=== PATIENT | female | born 1985 | race Two or more races ===

== ENCOUNTER → 2017-10-13 | Outpatient (CLI) | payer OTHER ==
--- NOTE | 2017-10-16 01:16 | ECWPNPC ---
PATIENT NAME: PREM LEDEZMA : 1985 GENDER: FEMALE VISIT DATE: 10/13/2017 DISCHARGE DATE: 10/13/17 1200 VISIT LOCKED DATE TIME: PHYSICIAN: ACOSTA DE LA GARZA RESOURCE: ACOSTA DE LA GARZA REASON FOR APPOINTMENT 1. LOW BACK PAIN HISTORY OF PRESENT ILLNESS NEW PATIENT CONSULT: WHEN DID YOUR PAIN FIRST START? . BRIEFLY DESCRIBE HOW YOUR PAIN STARTED? . HOW DOES YOUR PAIN CHANGE WITH TIME? . DOES YOUR PAIN AWAKEN YOU FROM SLEEP? . HOW MANY HOURS OF SLEEP DO YOU NORMALLY GET? . ANY DIAGNOSTIC TESTING? . FACILITY WHERE TESTS WERE DONE? ____. PAIN TREATMENT TREATMENT YES CANCER HAVE YOU EVER HAD ANY TYPE OF CANCER?NO NO. PAIN SCREENING: PATIENT HAS A COMPLAINT OF ACUTE OR CHRONIC PAIN :YES FALL RISK SCREENING: SCREENING :NO FALLS IN THE PAST YEAR MARIANO INVENTORY: QUESTIONNAIRE ASSESSEDYES SCORE VALUE CALCULATED YES SCORE: TODAY'S VISIT: NOTES: REFERRED BY BY FIDEL ROWE FROM [facility] FOR LOW BACK PAIN. HAS PREVIOUSLY BEEN SEEN BY CASANDRA DURAN DO FOR BACK PAIN AND DID HAVE INJECTION THERAPY. WAS RECENTLY REFERRED TO DR TONIA MALHOTRA PAIN MANAGEMENT BUT HE FELT HE HAD NOTHING NEW TO OFFER. SHE MAY CURRENTLY BE .STATES PAIN HAS BEEN PRESENT SINCE 2005 AFTER LIFTING A TV. DAY AFTER. HAD MRI DONE AT [facility] - AND CP DR JONES - - NO RETURN, WAS STARTED ON ENOCH THEN STOPPED. TOPAMAX - CAUSED NIGHTMARES. THEN SAW DR NAVA STARTED ON TRAM BUT CAN'T TAKE PER PSYCH DUE TO CYMBALTA. HAD INJ OF TORADOL IN OFFICE, AND TPI WHICH SHE FELT DISCOMFORT. HURTS TO SIT, LIFT, WALK, BEND. HAS MADE NUMEROUS TRIPS OVER TIME FOR BACK THE AQUA THERAPY WAS HELPFUL. PAIN FEELS LIKE A FIST IN BACK CAUSING PRESSURE. PAIN RADIATES DOWN THE LEGSDEPENDING ON WHICH SIDE IS THE WORST. CAN SLEEP AT TIMES. LEGS WEAK WHEN PAIN AT ITS WORST. HAD FALL IN SHOWER WITH FRACTURE OF RIGHLEG WITH DISLOCATION OF HIP.2011. ALSO FELL DOWN STAIRS AND FX RT TOES. DID HAVE RECENT FUNCTIONAL CAPACITY STUDY.. CURRENT MEDICATIONS TAKING CYMBALTA 60 MG CAPSULE DELAYED RELEASE PARTICLES 1 CAPSULE ORALLY ONCE A DAY, NOTES: 10-12-17 TAKING OXYCODONE-ACETAMINOPHEN 5-325 MG TABLET 1 TABLET NEEDED ORALLY EVERY 6 HRS TAKING IMODIUM ADVANCED TAKING REMERON 15 MG TABLET 1 TABLET AT BEDTIME ORALLY ONCE A DAY MEDICATION LIST REVIEWED AND RECONCILED WITH THE PATIENT PAST MEDICAL HISTORY DEPRESSION IBS INSOMNIA ASTHMA FX RIGHT FIBULA ANXIETY/ DEPRESSIN CHRONIC CELLULITIS TO LEFT EAR ALLERGIES CODEINE SULFATE: HIVES: ALLERGY CATS, WEEDS, DUST: SNEEZING SURGICAL HISTORY TONSILECTOMY 2010 C SECTION 2006 HERNIA REPAIR 2012 LIPOMA REMOVED 2014 FAMILY HISTORY FATHER: ALIVE MOTHER: ALIVE SOCIAL HISTORY GENERAL: TOBACCO USE ARE YOU A:CURRENT SMOKER ARE YOU INTERESTED IN QUITTING?NOT READY TO QUIT COUNSELED THE PATIENT ON SMOKING EFFECTS, EDUCATION [id number]/13/2017 HOW MANY CIGARETTES A DAY DO YOU SMOKE?31 OR MORE HOW OFTEN DO YOU SMOKE CIGARETTES?EVERY DAY PATIENT COUNSELED ON THE DANGERS OF TOBACCO USE AND URGED TO QUIT:10/13/2017 ALCOHOL SCREENING POINTS0 INTERPRETATIONNEGATIVE RECREATIONAL DRUG USE DRUG USE?NO CAFFEINE CAFFEINE USE?YES HOW OFTEN AND HOW MUCH? 1-2 CUPS COFFEE PER DAY ANABAPTISM [id number] NONE NO NONDENOMINATIONAL BELIEFS THAT WOULD IMPACT HEALTH CARE. LEARNING BARRIERS / SPECIAL NEEDS BARRIERS TO LEARNING?NO HEARING IMPAIRED?NO VISION IMPAIRED?YES :CORRECTIVE LENSES COGNITIVELY IMPAIRED?NO READINESS TO LEARN?YES LEARNING PREFERENCES?NO PSYCHOLOGICAL HX TREATMENTYES HOW OFTEN AND HOW MUCH? EVERY 2 WEEKS OR SO FOR DEPRESSION PAIN CLINIC PFS, CLERGY, PUBLIC HEALTH REFERRALS PFS REFERRAL NEEDED?NO CLERGY REFERRAL NEEDED?NO PUBLIC HEALTH REFERRAL NEEDED?NO WAS THE PROVIDER NOTIFIED OF ANY PERTINENT INFO?NO HAS THE PATIENT BEEN EDUCATED REGARDING HIS/HER PLAN OF CARE?YES HAS THE PATIENT BEEN EDUCATED REGARDING PAIN, THE RISK FOR PAIN, THE IMPORTANCE OF EFFECTIVE PAIN MANAGEMENT, AND THE PAIN ASSESSMENT PROCESS?YES PATIENT: ____. ADVANCE DIRECTIVES HEALTH CARE PROXY?NO WOULD YOU LIKE MORE INFORMATION?NO LIVING WILL?NO WOULD YOU LIKE MORE INFORMATION?NO HOSPITALIZATION/MAJOR DIAGNOSTIC PROCEDURE SEE ABOVE / HAS HAD SOME MAJOR PROBLEMS WITH RECOVERY FROM ANESTHESIA POST OP REVIEW OF SYSTEMS REVIEWED BY: PROVIDER: ACOSTA CARROLL . CONSTITUTIONAL: ANY CHANGE IN YOUR MEDICAL CONDITION? NO . CHILLS NO . FEVER NO . INFECTION: DO YOU HAVE NEW INFECTIONS? NO . DO YOU HAVE HISTORY OF MRSA? NO . MUSCULOSKELETAL: ANY NEW PATTERNS OF PAIN OR NUMBNESS? NO . SYTEMIC LUPUS NO . GASTROENTEROLOGY: ANY NEW CHANGE IN BOWEL CONTROL? IBS - WITH ALT DIARRHEA AND CONSTIPATION. TO SEE GASTROENTEROLOGY BEFORE. HAS RECTAL BLEED WITH STRAINING . BARRETTS ESOPHAGUS NO . CIRRHOSIS NO . HEPATITIS NO . LIVER FAILURE NO . ACID REFLUX NO . UNEXPLAINED WEIGHT LOSS NO . GENITOURINARY: ANY NEW CHANGE IN BLADDER CONTROL? NO . IS THERE A CHANCE YOU COULD BE ? NO . HEMATOLOGY/LYMPH: DO YOU TAKE ANY BLOOD THINNERS? (FOR EXAMPLE- COUMADIN, PLAVIX, AGGRENOX, PLATEL, PRADAXA, OR XARELTO) NO . WHEN WAS YOUR LAST DOSE? DATE: TIME: . LOW PLATELET COUNT NO . SICKLE CELL DISEASE NO . VON WILLIEBRANDS NO . FACTOR V LEIDEN NO . THALLASEMIA NO . ANEMIA NO . EASY BRUISING NO . NEUROLOGY: HAVE YOU FALLEN IN THE PAST 6 MONTHS? NO . ANY NEW EXTREMITY NUMBNESS OR WEAKNESS? NO . HEAD INJURY NO . DEMENTIA NO . CEREBRAL PALSY NO . MULTIPLE SCLEROSIS NO . DIZZINESS NO . HEADACHE NO . STROKES NO . VERTIGO NO . CARDIOLOGY: DO YOU HAVE A PACEMAKER OR DEFIBRILLATOR? NO . ANGINA NO . HEART ATTACK NO . HEART SURGERY NO . CONGESTIVE HEART FAILURE/FLUID OVERLOAD NO . CHEST PAIN NO . HIGH BLOOD PRESSURE YES, RESCENTLY . IRREGULAR HEART BEAT NO . RESPIRATORY: HAVE YOU BEEN SICK IN THE PAST WEEK? NO . FEVER NO . FLU LIKE SYMPTOMS? NO . CPAP NO . BYPAP NO . ASTHMA YES . EMPHYSEMA NO . CHRONIC LUNG DISEASES NO . SHORTNESS OF BREATH ON EXERTION NO . DO YOU USE ANY TYPE OF TOBACCO (SMOKE, SMOKELESS, CHEW)? YES - NOT CURRRENTLY THINKING ABOUT QUITING . COUGH NO . SNORING NO . INTEGUMENTARY: DO YOU HAVE ANY RASHES OR OPEN SORES? NO . ALLERGIC/IMMUNO: ARE YOU ALLERGIC TO SHELLFISH OR IV DYE? NO . ANY NEW ALLERGIES? NO . PSYCHIATRIC: DO YOU HAVE THOUGHTS OF HURTING YOURSELF OR SOMEONE ELSE? NO . ARE YOU ABUSED, NEGLECTED, OR IN AN UNSAFE ENVIRONMENT? NO . ENDOCRINOLOGY: ARE YOU DIABETIC? NO . THYROID DISORDER NO . OTHER: DO YOU NEED ANY PRESCRIPTIONS? NO . IF YES, PLEASE LIST: ____ . ANY NEW PROBLEMS WITH YOUR MEDICATIONS? NO . WHEN DID YOU LAST EAT? ____ . WHEN DID YOU LAST DRINK? ____ . WHAT DID YOU LAST DRINK? ____ . NAME OF PERSON DRIVING YOU HOME? ____ . DO YOU HAVE ANY OTHER QUESTIONS OR CONCERNS NO . PSYCHOLOGY: BECKS DEPRESSION INVENTORY . DENIES SUICIDAL OR HOMICIDAL IDEATION. CURRENTLY SEES A BEHAVIORAL HEALTH COUNSELOR . VITAL SIGNS WT 433.2 LBS, HT 65 IN, BMI 72.08 INDEX, BP 141/99 MM HG, HR 87 /MIN, RR 18 /MIN, TEMP 97 F, OXYGEN SAT % 95%, NA INITIALS SC 10:05, REVIEWED BY: NL. EXAMINATION GENERAL EXAMINATION: GENERAL APPEARANCE:MORBIDLY OBESE . PSYCHALERT , ORIENTED X 3 , VOICE LOUD . HEENT:THICK NECK. , NORMOCEPHALIC, NO PALPABLE LYMPH NODES. LUNGS:CLEAR TO AUSCULTATION BILATERALLY, DECREASED AIR ENTRY AT BASES, NO WHEEZES, RALES OR RHONCHI. HEART:HEART RATE REGULAR, RAPID, NORMAL S1S2, NO MURMURS, CLICK OR RUBS. MUSCULOSKELETAL:MUSCLE STRENGTH TESTING 5/5 BILATERAL UPPER AND LOWER EXTREMITIES. IS ABLE TO FLEX TO 90 DEGREES, EXTEND TO 10 DEGREES AND NO ISSUES WITH ROTATION. POINT TENDERNESS OVER LUMBOSACRAL AXIS RIGHT > LEFT . EXQUISITE PAIN WITH PATRICKS. TESTING LEFT GREATER THAN RIGHT. PAIN WITH PELVIC COMPRESSION BILATERALLY. REPORTS PAIN AT KNEES WITH SLR. POSTURE UPRIGHT. GAIT WIDEBASED. . NEUROLOGIC EXAM:NO SENSORY DEFIECIT. DTR'S TRACE/ABSENT IN BILATERAL UPPER AND LOWER EXTREMITIES. . DIAGNOSTIC TESTS REVIEWEDMRI OF LUMBAR SPINE/[facility] REVIEWED COMPLTED 11/15/16. DEMONSTRTAES SUBTLE LEFT PARACENTRAL DISC PROTRUSION AT L4-5. MILD INTRAFACET EDEMA NOTED. ASSESSMENTS MYALGIA - M79.1 (PRIMARY) BILATERAL SACROILIITIS - M46.1 LUMBAGO WITH SCIATICA, LEFT SIDE - M54.42 LUMBAGO WITH SCIATICA, RIGHT SIDE - M54.41 OTHER CHRONIC PAIN - G89.29 TREATMENT MYALGIA LAB: HCG, SERUM QUANTITATIVE NOTES: PREG TEST TODAY. OK TO USE FLEXERIL FOR MUSCLE SPASMSCONSIDER EPIDURAL INJECTION FOR PAIN. TALK TO MENTAL HEALTH PROVIDER ABOUT USE OF TRAMADOL. I WOULD BE GLAD TO SPEAK WITH THEM. WE WILL WATCH CLOSELY FOR SEROTONIN SYNDROME,WHAT IS LUMBAR EPIDURAL INJECTION? MATERIAL WAS PRINTED,LUMBAR EPIDURAL INJECTION: YOUR PROCEDURE MATERIAL WAS PRINTED,LUMBAR EPIDURAL INJECTION: YOUR PROCEDURE MATERIAL WAS PRINTED. CLINICAL NOTES: PT REPORTS SHE MAY BE . I DISCUSSED WITH HER THAT OTHER THAN FLEXERIL WOULD NOT BEABLE T PRESCRIBE OR RECMMEND ANY MEDICATIONS UNTIL THIS IS CONFIRMED. I DID REVIEW THAT WE WOULD NOT BE USING OPIATES BUT COULD TRY INJECTION THERAPY AND OTHER MEDS. RISKS AND CONCERNS REGARDING OPIATES WERE DISCUSSED WITH PT AND HER SO SKY. BILATERAL SACROILIITIS LAB: HCG, SERUM QUANTITATIVE PREVENTIVE MEDICINE DISCUSSED LUMBAR EPIDURAL PROCEDURE AND GAVE SOME WRITTEN INFO/ PT WILL BE SEEN BACK BEFORE THIS IS ORDERED AND WILL GET PREPROCEDURE TEACHING AT THAT TIME. PROCEDURE CODES FA211 ESTABILISHED PATIENT [facility] CHARGE DISPOSITION & COMMUNICATION FOLLOW UP 2 WEEKS (REASON: BACK PAIN) ELECTRONICALLY SIGNED BY FROY PHILLIP ON 10/15/2017 AT 01:24 PM EST DISCLAIMER : THIS IS A VISIT SUMMARY EXTRACTED FROM THE [employer] CHART. IT IS NOT A COPY OF THE [employer] PROGRESS NOTE. WILLIS
== END ==
LOC: M PAIN 09:45
PROVIDERS: ATTEND Nurse Practitioner Family
DX: M79.1 Myalgia (principal); M46.1 Sacroiliitis, not elsewhere classified; M54.42 Lumbago with sciatica, left side; M54.41 Lumbago with sciatica, right side; F32.9 Major depressive disorder, single episode, unspecified; G89.29 Other chronic pain; I10 Essential (primary) hypertension; K58.2 Mixed irritable bowel syndrome; F17.210 Nicotine dependence, cigarettes, uncomplicated; Z79.891 Long term (current) use of opiate analgesic; Z79.899 Other long term (current) drug therapy; Z88.5 Allergy status to narcotic agent; J30.81 Allergic rhinitis due to animal (cat) (dog) hair and dander

== ENCOUNTER → 2017-10-29 | Outpatient (CLI) | payer OTHER ==
--- NOTE | 2017-11-20 01:00 | ECWPNPC ---
PATIENT NAME: PREM LEDEZMA : 1985 GENDER: FEMALE VISIT DATE: 10/29/2017 DISCHARGE DATE: 10/29/17 1237 VISIT LOCKED DATE TIME: PHYSICIAN: ACOSTA DE LA GARZA RESOURCE: ACOSTA DE LA GARZA REASON FOR APPOINTMENT 1. BACK PAIN- PATIENT STATES SHE HAS A 1 PM APPT. ELSEWHERE HISTORY OF PRESENT ILLNESS HISTORY OF PRESENT ILLNESS: PAIN THE PATIENT DESCRIBES THE PAIN... FALL RISK SCREENING: SCREENING :NO FALLS IN THE PAST YEAR TODAY'S VISIT: NOTES: RATES PAIN LEVEL TODAY 10. PAIN IS MAILY LEFT SIDE LOW BACK. HAD A FALL IN THE BATH TUB A FEW DAYS AGO. STATES HAD A BRUISE IN THIS AREA. . CURRENT MEDICATIONS TAKING CYCLOBENZAPRINE HCL 10 MG TABLET 1 CAP ORALLY THREE TIMES A DAY TAKING CLONIDINE HCL 0.3 MG TABLET 1 TABLET ORALLY BEFORE BEDTIME TAKING CYMBALTA 60 MG CAPSULE DELAYED RELEASE PARTICLES 1 CAPSULE ORALLY ONCE A DAY TAKING OXYCODONE-ACETAMINOPHEN 5-325 MG TABLET 1 TABLET NEEDED ORALLY EVERY 6 HRS TAKING IMODIUM ADVANCED NOT-TAKING REMERON 15 MG TABLET 1 TABLET AT BEDTIME ORALLY ONCE A DAY MEDICATION LIST REVIEWED AND RECONCILED WITH THE PATIENT PAST MEDICAL HISTORY DEPRESSION IBS INSOMNIA ASTHMA FX RIGHT FIBULA ANXIETY/ DEPRESSIN CHRONIC CELLULITIS TO LEFT EAR ALLERGIES CODEINE SULFATE: HIVES: ALLERGY CATS, WEEDS, DUST: SNEEZING SURGICAL HISTORY TONSILECTOMY 2010 C SECTION 2007 HERNIA REPAIR 2012 LIPOMA REMOVED 2013 SOCIAL HISTORY GENERAL: TOBACCO USE ARE YOU A:CURRENT SMOKER ARE YOU INTERESTED IN QUITTING?NOT READY TO QUIT COUNSELED THE PATIENT ON SMOKING EFFECTS, EDUCATION [id number]/13/2017 HOW MANY CIGARETTES A DAY DO YOU SMOKE?31 OR MORE HOW OFTEN DO YOU SMOKE CIGARETTES?EVERY DAY PATIENT COUNSELED ON THE DANGERS OF TOBACCO USE AND URGED TO QUIT:10/13/2017 ALCOHOL SCREENING DID YOU HAVE A DRINK CONTAINING ALCOHOL IN THE PAST YEAR?NO POINTS0 INTERPRETATIONNEGATIVE RECREATIONAL DRUG USE DRUG USE?NO CAFFEINE CAFFEINE USE?YES HOW OFTEN AND HOW MUCH? 1-2 CUPS COFFEE PER DAY WORSHIP [id number] NONE NO LATTER DAY BELIEFS THAT WOULD IMPACT HEALTH CARE. LEARNING BARRIERS / SPECIAL NEEDS BARRIERS TO LEARNING?NO HEARING IMPAIRED?NO VISION IMPAIRED?YES :CORRECTIVE LENSES COGNITIVELY IMPAIRED?NO READINESS TO LEARN?YES LEARNING PREFERENCES?NO PSYCHOLOGICAL HX TREATMENTYES HOW OFTEN AND HOW MUCH? EVERY 2 WEEKS OR SO FOR DEPRESSION PAIN CLINIC PFS, CLERGY, PUBLIC HEALTH REFERRALS PFS REFERRAL NEEDED?NO CLERGY REFERRAL NEEDED?NO PUBLIC HEALTH REFERRAL NEEDED?NO WAS THE PROVIDER NOTIFIED OF ANY PERTINENT INFO?NO HAS THE PATIENT BEEN EDUCATED REGARDING HIS/HER PLAN OF CARE?YES HAS THE PATIENT BEEN EDUCATED REGARDING PAIN, THE RISK FOR PAIN, THE IMPORTANCE OF EFFECTIVE PAIN MANAGEMENT, AND THE PAIN ASSESSMENT PROCESS?YES PATIENT: ____. ADVANCE DIRECTIVES HEALTH CARE PROXY?NO WOULD YOU LIKE MORE INFORMATION?NO LIVING WILL?NO WOULD YOU LIKE MORE INFORMATION?NO HOSPITALIZATION/MAJOR DIAGNOSTIC PROCEDURE SEE ABOVE / HAS HAD SOME MAJOR PROBLEMS WITH RECOVERY FROM ANESTHESIA POST OP REVIEW OF SYSTEMS REVIEWED BY: PROVIDER: . CONSTITUTIONAL: ANY CHANGE IN YOUR MEDICAL CONDITION? NO . CHILLS NO . FEVER NO . INFECTION: DO YOU HAVE NEW INFECTIONS? NO . DO YOU HAVE HISTORY OF MRSA? NO . MUSCULOSKELETAL: ANY NEW PATTERNS OF PAIN OR NUMBNESS? YES, BACK PAIN FROM INJURY IN BATHTUB . GASTROENTEROLOGY: ANY NEW CHANGE IN BOWEL CONTROL? NO . GENITOURINARY: ANY NEW CHANGE IN BLADDER CONTROL? NO . IS THERE A CHANCE YOU COULD BE ? NO . HEMATOLOGY/LYMPH: DO YOU TAKE ANY BLOOD THINNERS? (FOR EXAMPLE- COUMADIN, PLAVIX, AGGRENOX, PLATEL, PRADAXA, OR XARELTO) NO . WHEN WAS YOUR LAST DOSE? DATE: TIME: . NEUROLOGY: HAVE YOU FALLEN IN THE PAST 6 MONTHS? NO . ANY NEW EXTREMITY NUMBNESS OR WEAKNESS? NO . CARDIOLOGY: DO YOU HAVE A PACEMAKER OR DEFIBRILLATOR? NO . RESPIRATORY: HAVE YOU BEEN SICK IN THE PAST WEEK? NO . FEVER NO . FLU LIKE SYMPTOMS? NO . COUGH NO . INTEGUMENTARY: DO YOU HAVE ANY RASHES OR OPEN SORES? NO . ALLERGIC/IMMUNO: ARE YOU ALLERGIC TO SHELLFISH OR IV DYE? NO . ANY NEW ALLERGIES? NO . PSYCHIATRIC: DO YOU HAVE THOUGHTS OF HURTING YOURSELF OR SOMEONE ELSE? NO . ARE YOU ABUSED, NEGLECTED, OR IN AN UNSAFE ENVIRONMENT? NO . ENDOCRINOLOGY: ARE YOU DIABETIC? NO . OTHER: DO YOU NEED ANY PRESCRIPTIONS? NO . IF YES, PLEASE LIST: ____ . ANY NEW PROBLEMS WITH YOUR MEDICATIONS? NO . WHEN DID YOU LAST EAT? ____ . WHEN DID YOU LAST DRINK? ____ . WHAT DID YOU LAST DRINK? ____ . NAME OF PERSON DRIVING YOU HOME? ____ . DO YOU HAVE ANY OTHER QUESTIONS OR CONCERNS NO . VITAL SIGNS WT 431 LBS, HT 65 IN, BMI 71.71 INDEX, BP 128/82 MM HG, HR 89 /MIN, RR 18 /MIN, TEMP 97.8 F, OXYGEN SAT % 95%, NA INITIALS SC 11:53, REVIEWED BY: RAMESH. EXAMINATION GENERAL EXAMINATION: PSYCHALERT , ORIENTED X 3 , ANXIOUS. LUNGS:CLEAR TO AUSCULTATION BILATERALLY. HEART:HEART RATE REGULAR. MUSCULOSKELETAL: , PALPATION: POSITIVE FOR PAIN OVER L/S SPINE AND BILATERALLY OVER THE SACRAL ILIAC JOINTS. . POSITIVE FOR PAIN OVER L/S PARSPINALS. HAS DIFFICULTY RISING TO FULL STANDING POSITION. ASSESSMENTS MYALGIA - M79.1 (PRIMARY) BILATERAL SACROILIITIS - M46.1 LUMBAGO WITH SCIATICA, LEFT SIDE - M54.42 LUMBAGO WITH SCIATICA, RIGHT SIDE - M54.41 OTHER CHRONIC PAIN - G89.29 TREATMENT MYALGIA START TRAMADOL HCL TABLET, 50 MG, 1 TABLET NEEDED, ORALLY, EVERY 6 HRS PRN PAIN MDD=3, 30 DAY(S), 90, REFILLS 1 REFILL OXYCODONE-ACETAMINOPHEN TABLET, 5-325 MG, 1 TABLET NEEDED, ORALLY, EVERY 6 HRS PRN PIAN MDD=4 FOR SEVERE PAIN MDD=4, 30 DAY(S), 120, REFILLS 0 NOTES: INTRALAMINAL LUMBAR EPIDURAL NARCOTIC AGREEMENT TODAY,LUMBAR EPIDURAL INJECTION: RECOVERY AT HOME MATERIAL WAS PRINTED, REVIEWED AND GIVEN TO PT. CLINICAL NOTES: ISTOP REGISTRY REVIEWED AND DEMNOSTRATES COMPLLIANCE. REF # [id number]) . , RISKS AND BENEFITS OF NARCOTIC/OPIOD MEDICATIONS WERE REVIEWED WITH PATIENT - THIS INCLUDES BUT IS NOT LIMITED TO RISK OF DEPENDANCE/DEVELOPMENT OF ADDICTION, MOOD DISTURBANCE AND DEPRESSION, OSTEOPOROSIS, HORMONAL AND LABIDAL CHANGES, RESPIRATORY DEPRESSION AND . PATIENT IS ADVISED NOT TO DRIVE WHILE ON THESE MEDICATIONS. PROCEDURE CODES FA211 ESTABILISHED PATIENT [facility] CHARGE DISPOSITION & COMMUNICATION FOLLOW UP ONE MONTH (REASON: BACK PAIN) ELECTRONICALLY SIGNED BY FROY PHILLIP ON 11/19/2017 AT 07:14 PM EST DISCLAIMER : THIS IS A VISIT SUMMARY EXTRACTED FROM THE [employer] CHART. IT IS NOT A COPY OF THE [employer] PROGRESS NOTE. MTDD
== END ==
LOC: M PAIN 10:45
PROVIDERS: ATTEND Nurse Practitioner Family
DX: M79.1 Myalgia (principal); M46.1 Sacroiliitis, not elsewhere classified; M54.42 Lumbago with sciatica, left side; M54.41 Lumbago with sciatica, right side; G89.29 Other chronic pain; F17.210 Nicotine dependence, cigarettes, uncomplicated; Z79.891 Long term (current) use of opiate analgesic; Z79.899 Other long term (current) drug therapy; Z88.5 Allergy status to narcotic agent; J30.81 Allergic rhinitis due to animal (cat) (dog) hair and dander

== ENCOUNTER → 2018-01-19 | Outpatient (CLI) | payer OTHER ==
[~2018-01-19] MED LIST: ISOVUE-M 300 61% 15ML VIAL (Q9967) As Ordered; LIDOCAINE 1% SDV INJ 30 ML VIAL As Ordered; diazePAM 5 MG TAB As Ordered; methylPREDNISolone SUSP 40 MG/ML (DEPO-medrol) VIAL (J1030) As Ordered; oxyCODONE 5MG TAB As Ordered
== END ==
LOC: M PAIN 10:15
DX: G89.29 Other chronic pain (principal); M51.16 Intervertebral disc disorders with radiculopathy, lumbar region; F32.9 Major depressive disorder, single episode, unspecified; G47.00 Insomnia, unspecified; J45.909 Unspecified asthma, uncomplicated; F41.9 Anxiety disorder, unspecified; F17.200 Nicotine dependence, unspecified, uncomplicated; Z79.899 Other long term (current) drug therapy; Z88.5 Allergy status to narcotic agent
CPT/HCPCS: J1030

== ENCOUNTER → 2018-02-11 | Outpatient (CLI) | payer OTHER | LOC: M PAIN 11:00 | DX: M51.16 Intervertebral disc disorders with radiculopathy, lumbar region (principal); M25.561 Pain in right knee; Z79.891 Long term (current) use of opiate analgesic; Z79.899 Other long term (current) drug therapy; Z88.8 Allergy status to other drugs, medicaments and biological substances; J30.81 Allergic rhinitis due to animal (cat) (dog) hair and dander | CPT/HCPCS: G0463 ==

== ENCOUNTER → 2018-03-16 | Outpatient (CLI) | payer OTHER ==
[~2018-03-16] MED LIST changes: +ONDANSETRON 4MG/2ML VIAL (J2405) As Ordered
== END ==
LOC: M PAIN 10:30
DX: G89.29 Other chronic pain (principal); M51.16 Intervertebral disc disorders with radiculopathy, lumbar region; F32.9 Major depressive disorder, single episode, unspecified; G47.00 Insomnia, unspecified; J45.909 Unspecified asthma, uncomplicated; F41.9 Anxiety disorder, unspecified; F17.210 Nicotine dependence, cigarettes, uncomplicated; Z79.899 Other long term (current) drug therapy; Z88.8 Allergy status to other drugs, medicaments and biological substances
CPT/HCPCS: J1030

== ENCOUNTER → 2018-03-30 | Outpatient (CLI) | payer OTHER | LOC: M PAIN 10:15 | DX: M51.16 Intervertebral disc disorders with radiculopathy, lumbar region (principal); M79.1 Myalgia; M25.561 Pain in right knee; M17.11 Unilateral primary osteoarthritis, right knee; F32.9 Major depressive disorder, single episode, unspecified; G47.00 Insomnia, unspecified; J45.909 Unspecified asthma, uncomplicated; F41.9 Anxiety disorder, unspecified; F17.210 Nicotine dependence, cigarettes, uncomplicated; Z79.899 Other long term (current) drug therapy; Z88.5 Allergy status to narcotic agent | CPT/HCPCS: G0463 ==

== ENCOUNTER → 2018-05-06 | Outpatient (CLI) | payer OTHER ==
[~2018-05-06] MED LIST changes: +MIDAZOLAM INJ 2 MG/2 ML VIAL (J2250) As Ordered; -ONDANSETRON 4MG/2ML VIAL (J2405) As Ordered; -diazePAM 5 MG TAB As Ordered; +diphenhydrAMINE INJ 50MG/ML VIAL (J1200) As Ordered; +fentaNYL 100 MCG/2 ML INJECTION (J3010) As Ordered; -oxyCODONE 5MG TAB As Ordered
== END ==
LOC: M PAIN 13:00
DX: G89.29 Other chronic pain (principal); M51.16 Intervertebral disc disorders with radiculopathy, lumbar region; F32.9 Major depressive disorder, single episode, unspecified; G47.00 Insomnia, unspecified; J45.909 Unspecified asthma, uncomplicated; F41.9 Anxiety disorder, unspecified; F17.210 Nicotine dependence, cigarettes, uncomplicated; Z79.891 Long term (current) use of opiate analgesic; Z79.899 Other long term (current) drug therapy; Z88.5 Allergy status to narcotic agent
CPT/HCPCS: J1200

== ENCOUNTER → 2018-05-21 | Outpatient (CLI) | payer OTHER | LOC: M PAIN 10:45 | DX: M51.16 Intervertebral disc disorders with radiculopathy, lumbar region (principal); M25.561 Pain in right knee; M46.1 Sacroiliitis, not elsewhere classified; F32.9 Major depressive disorder, single episode, unspecified; G47.00 Insomnia, unspecified; J45.909 Unspecified asthma, uncomplicated; F41.9 Anxiety disorder, unspecified; F17.210 Nicotine dependence, cigarettes, uncomplicated; Z79.891 Long term (current) use of opiate analgesic; Z79.899 Other long term (current) drug therapy; Z88.5 Allergy status to narcotic agent | CPT/HCPCS: G0463 ==

== ENCOUNTER → 2018-06-19 | Outpatient (CLI) | payer OTHER | LOC: M PAIN 11:15 | DX: M51.16 Intervertebral disc disorders with radiculopathy, lumbar region (principal); M25.561 Pain in right knee; F32.9 Major depressive disorder, single episode, unspecified; G47.00 Insomnia, unspecified; J45.909 Unspecified asthma, uncomplicated; F41.9 Anxiety disorder, unspecified; F17.210 Nicotine dependence, cigarettes, uncomplicated; E66.01 Morbid (severe) obesity due to excess calories; Z68.45 Body mass index [BMI] 70 or greater, adult; Z79.899 Other long term (current) drug therapy; Z88.5 Allergy status to narcotic agent | CPT/HCPCS: G0463 ==

== ENCOUNTER → 2018-09-09 | Outpatient (CLI) | payer OTHER ==
[~2018-09-09] MED LIST changes: +BUPIVACAINE HCL 0.25% 30 ML VIAL As Ordered; -MIDAZOLAM INJ 2 MG/2 ML VIAL (J2250) As Ordered; -diphenhydrAMINE INJ 50MG/ML VIAL (J1200) As Ordered; -fentaNYL 100 MCG/2 ML INJECTION (J3010) As Ordered; -methylPREDNISolone SUSP 40 MG/ML (DEPO-medrol) VIAL (J1030) As Ordered
== END ==
LOC: M PAIN 09:45
DX: M47.816 Spondylosis without myelopathy or radiculopathy, lumbar region (principal); M47.817 Spondylosis without myelopathy or radiculopathy, lumbosacral region; F32.9 Major depressive disorder, single episode, unspecified; K58.9 Irritable bowel syndrome, unspecified; G47.00 Insomnia, unspecified; J45.909 Unspecified asthma, uncomplicated; F41.9 Anxiety disorder, unspecified; F17.210 Nicotine dependence, cigarettes, uncomplicated; Z79.899 Other long term (current) drug therapy; Z88.2 Allergy status to sulfonamides
CPT/HCPCS: Q9967

== ENCOUNTER → 2018-09-24 | Outpatient (CLI) | payer OTHER | LOC: M PAIN 10:30 | DX: M47.816 Spondylosis without myelopathy or radiculopathy, lumbar region (principal); M47.817 Spondylosis without myelopathy or radiculopathy, lumbosacral region; F32.9 Major depressive disorder, single episode, unspecified; G47.00 Insomnia, unspecified; J45.909 Unspecified asthma, uncomplicated; F41.9 Anxiety disorder, unspecified; F17.210 Nicotine dependence, cigarettes, uncomplicated; Z79.899 Other long term (current) drug therapy; Z88.5 Allergy status to narcotic agent | CPT/HCPCS: G0463 ==

== ENCOUNTER → 2019-02-02 | Outpatient (CLI) | payer OTHER ==
--- NOTE | 2019-02-17 01:58 | ECWPNPC ---
PATIENT NAME: PREM LEDEZMA : 1985 GENDER: FEMALE VISIT DATE: 02/02/2019 DISCHARGE DATE: 02/02/19 1234 VISIT LOCKED DATE TIME: PHYSICIAN: IVAN HUERTA RESOURCE: IVAN HUERTA REASON FOR APPOINTMENT 1. BACK HISTORY OF PRESENT ILLNESS HISTORY OF PRESENT ILLNESS: HERE FOR F/U OF CHRONIC LOW BACK PAIN AND BILAT. KNEE PAIN.RATNG PAIN VAS 7/10.DESCRIBES PAIN MAINLY AT NIGHT THAT WAKES HER FROM SLEEP.DESCRIBES PAIN CONSTANT,ACHING AND SHARP. PAIN THE PATIENT DESCRIBES THE PAIN... FALL RISK SCREENING: SCREENING : NO FALLS IN THE PAST YEAR. CURRENT MEDICATIONS TAKING CYMBALTA 60 MG CAPSULE DELAYED RELEASE PARTICLES 1 CAPSULE ORALLY ONCE A DAY TAKING PROPRANOLOL HCL 10 MG TABLET 1 TABLET ORALLY TWICE DAILY TAKING ALBUTEROL SULFATE HFA 108 (90 BASE) MCG/ACT AEROSOL SOLUTION 2 PUFFS NEEDED INHALATION EVERY 4 HOURS NEEDED TAKING BENADRYL 25 MGS 4 TABS ORALLY AT BEDTIME NEEDED, NOTES: 100 MG TAKING TRAMADOL HCL 50 MG TABLET 1 TABLET NEEDED ORALLY EVERY 6 HRS PRN PAIN MDD=3 TAKING CYCLOBENZAPRINE HCL 10 MG TABLET 1 CAP ORALLY THREE TIMES A DAY TAKING OXYCODONE-ACETAMINOPHEN 5-325 MG TABLET 1 TABLET NEEDED ORALLY EVERY 6 HRS PRN PIAN MDD=4 FOR SEVERE PAIN MDD=4 TAKING IBUPROFEN 800 MG TABLET 1 TABLET WITH FOOD OR MILK NEEDED ORALLY THREE TIMES A DAY TAKING LEVAQUIN 750 MG TABLET 1 TABLET ORALLY ONCE A DAY TAKING TRAZODONE HCL 100 MG TABLET 1 TABLET AT BEDTIME ORALLY ONCE A DAY NOT-TAKING CLONIDINE HCL 0.3 MG TABLET 1 TABLET ORALLY BEFORE BEDTIME MEDICATION LIST REVIEWED AND RECONCILED WITH THE PATIENT PAST MEDICAL HISTORY DEPRESSION IBS INSOMNIA ASTHMA FX RIGHT FIBULA ANXIETY/ DEPRESSIN CHRONIC CELLULITIS TO LEFT EAR BILATERAL CARPAL TUNNEL SYNDROME ALLERGIES CODEINE SULFATE: HIVES - ALLERGY CATS, WEEDS, DUST: SNEEZING SURGICAL HISTORY TONSILECTOMY 2010 C SECTION 2006 HERNIA REPAIR 2012 LIPOMA REMOVED 2013 LEFT CARPAL TUNNEL REPAIR 11/13/18 RIGHT CARPAL TUNNEL REPAIR 03/26 MOLE REMOVED FROM BACK ? FAMILY HISTORY FATHER: ALIVE MOTHER: ALIVE 1DAUGHTER(S) - HEALTHY. MOTHER - FIBROMYALGIA, [place]OWER [place]. SOCIAL HISTORY GENERAL: TOBACCO USE ARE YOU A:CURRENT SMOKER ARE YOU INTERESTED IN QUITTING?NOT READY TO QUIT COUNSELED THE PATIENT ON SMOKING EFFECTS, EDUCATION [id number]/05/2019 HOW MANY CIGARETTES A DAY DO YOU SMOKE?11-20 HOW SOON AFTER YOU WAKE UP DO YOU SMOKE YOUR FIRST CIGARETTE?WITHIN 5 MIN HOW OFTEN DO YOU SMOKE CIGARETTES?EVERY DAY PATIENT COUNSELED ON THE DANGERS OF TOBACCO USE AND URGED TO QUIT:02/02/2019 ALCOHOL SCREENING DID YOU HAVE A DRINK CONTAINING ALCOHOL IN THE PAST YEAR?NO POINTS0 INTERPRETATIONNEGATIVE RECREATIONAL DRUG USE DRUG USE?NO CAFFEINE CAFFEINE USE?YES HOW OFTEN AND HOW MUCH? 1-2 CUPS COFFEE PER DAY HOLINESS [id number] NONE NO JEHOVAH'S WITNESS BELIEFS THAT WOULD IMPACT HEALTH CARE. LANGUAGE LANGUAGES SPOKEN:KOREAN LEARNING BARRIERS / SPECIAL NEEDS BARRIERS TO LEARNING?NO HEARING IMPAIRED?NO VISION IMPAIRED?YES :CORRECTIVE LENSES COGNITIVELY IMPAIRED?NO READINESS TO LEARN?YES LEARNING PREFERENCES?NO LEARNING CAPABILITIES PRESENT?YES EMOTIONAL BARRIERS?NO SPECIAL DEVICES?NO PRECISION MACHINIST NEEDED?NO DOMESTIC VIOLENCE DO YOU FEEL SAFE IN YOUR ENVIRONMENT?YES PAIN CLINIC PFS, CLERGY, PUBLIC HEALTH REFERRALS PFS REFERRAL NEEDED?NO CLERGY REFERRAL NEEDED?NO PUBLIC HEALTH REFERRAL NEEDED?NO WAS THE PROVIDER NOTIFIED OF ANY PERTINENT INFO? N/A HAS THE PATIENT BEEN EDUCATED REGARDING HIS/HER PLAN OF CARE?YES HAS THE PATIENT BEEN EDUCATED REGARDING PAIN, THE RISK FOR PAIN, THE IMPORTANCE OF EFFECTIVE PAIN MANAGEMENT, AND THE PAIN ASSESSMENT PROCESS?YES ADVANCE DIRECTIVE ADVANCE DIRECTIVE DISCUSSED WITH PATIENT:YES PT DOES HAVE ANY ADVANCED DIRECTIVES AND SHE DECLINES INFORMATION ON HCP AT THIS TIME. 03/30/18 1145 REVIEWED AD 09/09/18 1010 REVIEWED WITH PT. ADREVIEWED WITH PATIENT 09/24/18 1040 JSREVIEWED WITH PATIENT 02/02/19 1132 JS. HOSPITALIZATION/MAJOR DIAGNOSTIC PROCEDURE [facility] X 4 REVIEW OF SYSTEMS REVIEWED BY: PROVIDER: IVAN CARROLL . CONSTITUTIONAL: ANY CHANGE IN YOUR MEDICAL CONDITION? NO . CHILLS NO . FEVER NO . INFECTION: DO YOU HAVE NEW INFECTIONS? YES, LEFT EAR CELLULITIS, ON ANTIBIOTICS . DO YOU HAVE HISTORY OF MRSA? NO . MUSCULOSKELETAL: ANY NEW PATTERNS OF PAIN OR NUMBNESS? YES, STATES HER RIGHT KNEE POPPED GETTING OUT OF THE CAR YESTERDAY AND THEN LATER HER RIGHT LEG SPASMED AND LOCKED UP NOT ALLOWING HER TO MOVE . GASTROENTEROLOGY: ANY NEW CHANGE IN BOWEL CONTROL? NO . GENITOURINARY: ANY NEW CHANGE IN BLADDER CONTROL? NO . IS THERE A CHANCE YOU COULD BE ? NO . HEMATOLOGY/LYMPH: DO YOU TAKE ANY BLOOD THINNERS? (FOR EXAMPLE- COUMADIN, PLAVIX, AGGRENOX, PLATEL, PRADAXA, OR XARELTO) NO . WHEN WAS YOUR LAST DOSE? DATE: TIME: . NEUROLOGY: HAVE YOU FALLEN IN THE PAST 12 MONTHS? YES, STATES SHE STEPPED ON A WATER BOTTLE WALKING DOWN THE STAIRS AND FELL DOWN HALF THE STAIRS. LANDED ON HER STOMACH AND HIT HER HEAD ON THE DOOR, STATES SHE DID NOT LOSE CONSCIOUSNESS. NO ED VISIT, NO IMAGING. STATES SHE WAS SORE FOR A FEW DAYS AND HAD A BRUISE ON HER BUTTOCKS . ANY NEW EXTREMITY NUMBNESS OR WEAKNESS? YES, STATES HER RIGHT LEG GOES NUMB . CARDIOLOGY: DO YOU HAVE A PACEMAKER OR DEFIBRILLATOR? NO . RESPIRATORY: HAVE YOU BEEN SICK IN THE PAST WEEK? NO . FEVER NO . FLU LIKE SYMPTOMS? NO . COUGH NO . INTEGUMENTARY: DO YOU HAVE ANY RASHES OR OPEN SORES? YES, OPEN SORE ON LEFT EAR . ALLERGIC/IMMUNO: ARE YOU ALLERGIC TO IV DYE? NO . ANY NEW ALLERGIES? NO . PSYCHIATRIC: DO YOU HAVE THOUGHTS OF HURTING YOURSELF OR SOMEONE ELSE? NO . ARE YOU ABUSED, NEGLECTED, OR IN AN UNSAFE ENVIRONMENT? NO . ENDOCRINOLOGY: ARE YOU DIABETIC? NO . OTHER: DO YOU NEED ANY PRESCRIPTIONS? YES . IF YES, PLEASE LIST: ____OXYCODONE-ACETAMINOPHEN, TRAMADOL, CYCLOBENZAPRINE . ANY NEW PROBLEMS WITH YOUR MEDICATIONS? NO . WHEN DID YOU LAST EAT? ____ . WHEN DID YOU LAST DRINK? ____ . WHAT DID YOU LAST DRINK? ____ . NAME OF PERSON DRIVING YOU HOME? ____ . DO YOU HAVE ANY OTHER QUESTIONS OR CONCERNS YES, WOULD LIKE TO GET BACK INTO [facility] . VITAL SIGNS WT 441.8 LBS, HT 65 IN, BMI 73.51 INDEX, BP 139/80 MM HG, HR 115 /MIN, RR 18 /MIN, TEMP 96.6 F, OXYGEN SAT % 97%, SAFE IN ENV? (Y/N) YES, NA INITIALS SC 11:09, REVIEWED BY: MELQUIADES. EXAMINATION GENERAL EXAMINATION: PSYCHALERT , ORIENTED X 3 , ANXIOUS. LUNGS:CLEAR TO AUSCULTATION BILATERALLY. HEART:HEART RATE REGULAR. MUSCULOSKELETAL:POINT TENDERNESS OVER LUMBAR SPINOUS PROCESSES AND ACROSS THE LUMBOSACRAL AXIS. INCREASED PAIN WITH FLEXION AND EXTENSION OF THE SPINE. INCREASED PAIN WITH AXIAL LOADING. ASSESSMENTS INTERVERTEBRAL DISC DISORDER WITH RADICULOPATHY OF LUMBAR REGION - M51.16 (PRIMARY) TREATMENT INTERVERTEBRAL DISC DISORDER WITH RADICULOPATHY OF LUMBAR REGION DECREASE TRAMADOL HCL TABLET, 50 MG, 1 DIRECTED, ORALLY, 1 TAB BID [id number],1QD X10 DAYS THEN DISCONTINUE, 30 DAY(S), 30, REFILLS 0 REFILL CYCLOBENZAPRINE HCL TABLET, 10 MG, 1 CAP, ORALLY, THREE TIMES A DAY, 30 DAY(S), 90 CAPSULE, REFILLS 5 REFILL OXYCODONE-ACETAMINOPHEN TABLET, 5-325 MG, 1 TABLET NEEDED, ORALLY, EVERY 6 HRS PRN PIAN MDD=4 FOR SEVERE PAIN MDD=4, 30 DAY(S), 120, REFILLS 0 NOTES: [employer] REVIEWED AND DEMONSTRATES COMPLLIANCE. (REF #[id number] ) BRINGS IN MEDICATIONS WHICH IS APPROPRIATE FOR WHAT WAS DISPENSED. RECENT URINE TOXICOLOGY REVIEWED. NO UNAUTHORIZED MEDICATIONS. NO ILLICIT SUBSTANCES AND PRESCRIBED MEDICATIONS WERE PRESENT.URINE TOX TODAY , RISKS AND BENEFITS OF NARCOTIC/OPIOD MEDICATIONS WERE REVIEWED WITH PATIENT - THIS INCLUDES BUT IS NOT LIMITED TO RISK OF DEPENDANCE/DEVELOPMENT OF ADDICTION, MOOD DISTURBANCE AND DEPRESSION, OSTEOPOROSIS, HORMONAL AND LABIDAL CHANGES, RESPIRATORY DEPRESSION AND . PATIENT IS ADVISED NOT TO DRIVE OR DRINK ALCOHOL WHILE ON THESE MEDICATIONSREFER TO [facility]. PROCEDURE CODES FA211 ESTABILISHED PATIENT [facility] CHARGE DISPOSITION & COMMUNICATION FOLLOW UP 6 WEEKS (REASON: REFER TO [facility]) ELECTRONICALLY SIGNED BY CARLY FLORENTINO ON 02/16/2019 AT 03:43 PM EDT DISCLAIMER : THIS IS A VISIT SUMMARY EXTRACTED FROM THE Status Overload CHART. IT IS NOT A COPY OF THE [employer] PROGRESS NOTE. MTDD
== END ==
LOC: M PAIN 10:45
PROVIDERS: ATTEND Nurse Practitioner Family
DX: M51.16 Intervertebral disc disorders with radiculopathy, lumbar region (principal); G89.29 Other chronic pain; Z86.59 Personal history of other mental and behavioral disorders; G47.00 Insomnia, unspecified; J45.909 Unspecified asthma, uncomplicated; F17.210 Nicotine dependence, cigarettes, uncomplicated; Z88.5 Allergy status to narcotic agent; Z91.048 Other nonmedicinal substance allergy status; E66.01 Morbid (severe) obesity due to excess calories; Z68.45 Body mass index [BMI] 70 or greater, adult; Z79.899 Other long term (current) drug therapy

== ENCOUNTER → 2019-08-06 | Outpatient (CLI) | payer OTHER ==
--- NOTE | 2019-08-19 01:17 | ECWPNPC ---
PATIENT NAME: PREM LEDEZMA : 1985 GENDER: FEMALE VISIT DATE: 08/06/2019 DISCHARGE DATE: 08/06/19 1126 VISIT LOCKED DATE TIME: PHYSICIAN: IVAN HUERTA RESOURCE: IVAN HUERTA REASON FOR APPOINTMENT 1. BACK HISTORY OF PRESENT ILLNESS HISTORY OF PRESENT ILLNESS: HERE FOR F/U OF CHRONIC LOW BACK PAIN AND BILAT. KNEE PAIN.RATNG PAIN VAS 7/10.DESCRIBES PAIN MAINLY AT NIGHT THAT WAKES HER FROM SLEEP.DESCRIBES PAIN CONSTANT,ACHING AND SHARP. PAIN THE PATIENT DESCRIBES THE PAIN... THE PATIENT DESCRIBES THE PAIN... PAIN THE PATIENT DESCRIBES THE PAIN... THE PATIENT DESCRIBES THE PAIN... FALL RISK SCREENING: SCREENING :NO FALLS REPORTED IN THE LAST YEAR CURRENT MEDICATIONS TAKING CYMBALTA 60 MG CAPSULE DELAYED RELEASE PARTICLES 1 CAPSULE ORALLY ONCE A DAY TAKING PROPRANOLOL HCL 10 MG TABLET 1 TABLET ORALLY TWICE DAILY TAKING ALBUTEROL SULFATE HFA 108 (90 BASE) MCG/ACT AEROSOL SOLUTION 2 PUFFS NEEDED INHALATION EVERY 4 HOURS NEEDED TAKING BENADRYL 25 MGS 4 TABS ORALLY AT BEDTIME NEEDED, NOTES: 100 MG TAKING IBUPROFEN 800 MG TABLET 1 TABLET WITH FOOD OR MILK NEEDED ORALLY THREE TIMES A DAY TAKING TRAZODONE HCL 100 MG TABLET 1 TABLET AT BEDTIME ORALLY ONCE A DAY TAKING OXYCODONE-ACETAMINOPHEN 5-325 MG TABLET 1 TABLET NEEDED ORALLY EVERY 6 HRS PRN PIAN MDD=4 FOR SEVERE PAIN MDD=4 TAKING CYCLOBENZAPRINE HCL 10 MG TABLET 1 CAP ORALLY THREE TIMES A DAY TAKING HYDROCHLOROTHIAZIDE 12.5 MG CAPSULE 1 CAPSULE IN THE MORNING ORALLY ONCE A DAY NOT-TAKING LEVAQUIN 750 MG TABLET 1 TABLET ORALLY ONCE A DAY NOT-TAKING TRAMADOL HCL 50 MG TABLET 1 DIRECTED ORALLY 1 TAB BID [id number] X10 DAYS THEN DISCONTINUE UNKNOWN CLONIDINE HCL 0.3 MG TABLET 1 TABLET ORALLY BEFORE BEDTIME MEDICATION LIST REVIEWED AND RECONCILED WITH THE PATIENT PAST MEDICAL HISTORY DEPRESSION IBS INSOMNIA ASTHMA FX RIGHT FIBULA ANXIETY/ DEPRESSIN CHRONIC CELLULITIS TO LEFT EAR BILATERAL CARPAL TUNNEL SYNDROME HTN BREAST FEEDING: YES ALLERGIES CODEINE SULFATE: HIVES - ALLERGY CATS, WEEDS, DUST: SNEEZING SURGICAL HISTORY TONSILECTOMY 2010 C SECTION 2007 HERNIA REPAIR 2011 LIPOMA REMOVED 2013 LEFT CARPAL TUNNEL REPAIR 11/13/18 RIGHT CARPAL TUNNEL REPAIR 4/26 MOLE REMOVED FROM BACK ? FAMILY HISTORY FATHER: ALIVE MOTHER: [id number]. MOTHER - FIBROMYALGIA, [place]. SOCIAL HISTORY GENERAL: TOBACCO USE ARE YOU A:CURRENT SMOKER ARE YOU INTERESTED IN QUITTING?NOT READY TO QUIT COUNSELED THE PATIENT ON SMOKING EFFECTS, EDUCATION [id number]/05/2019 HOW MANY CIGARETTES A DAY DO YOU SMOKE?31 OR MORE HOW SOON AFTER YOU WAKE UP DO YOU SMOKE YOUR FIRST CIGARETTE?WITHIN 5 MIN HOW OFTEN DO YOU SMOKE CIGARETTES?EVERY DAY PATIENT COUNSELED ON THE DANGERS OF TOBACCO USE AND URGED TO QUIT:08/06/2019 PAIN CLINIC PFS, CLERGY, PUBLIC HEALTH REFERRALS PFS REFERRAL NEEDED?NO CLERGY REFERRAL NEEDED?NO PUBLIC HEALTH REFERRAL NEEDED?NO WAS THE PROVIDER NOTIFIED OF ANY PERTINENT INFO? N/A HAS THE PATIENT BEEN EDUCATED REGARDING HIS/HER PLAN OF CARE?YES HAS THE PATIENT BEEN EDUCATED REGARDING PAIN, THE RISK FOR PAIN, THE IMPORTANCE OF EFFECTIVE PAIN MANAGEMENT, AND THE PAIN ASSESSMENT PROCESS?YES CAFFEINE CAFFEINE USE?YES HOW OFTEN AND HOW MUCH? 1-2 CUPS COFFEE PER DAY ADVANCE DIRECTIVE ADVANCE DIRECTIVE DISCUSSED WITH PATIENT:YES PT DOES HAVE ANY ADVANCED DIRECTIVES AND SHE DECLINES INFORMATION ON HCP AT THIS TIME. MANDAEN [id number] NONE NO CONGREGATION BELIEFS THAT WOULD IMPACT HEALTH CARE. LANGUAGE LANGUAGES SPOKEN:[place] DOMESTIC VIOLENCE DO YOU FEEL SAFE IN YOUR ENVIRONMENT?YES ALCOHOL SCREENING DID YOU HAVE A DRINK CONTAINING ALCOHOL IN THE PAST YEAR?NO POINTS0 INTERPRETATIONNEGATIVE RECREATIONAL DRUG USE DRUG USE?NO LEARNING BARRIERS / SPECIAL NEEDS BARRIERS TO LEARNING?NO HEARING IMPAIRED?NO VISION IMPAIRED?YES COGNITIVELY IMPAIRED?NO :CORRECTIVE LENSES READINESS TO LEARN?YES LEARNING PREFERENCES?NO LEARNING CAPABILITIES PRESENT?YES EMOTIONAL BARRIERS?NO SPECIAL DEVICES?NO PUBLIC SAFETY TELECOMMUNICATOR NEEDED?NO 03/30/18 1145 REVIEWED AD 09/09/18 1010 REVIEWED WITH PT. ADREVIEWED WITH PATIENT 09/24/18 1040 JSREVIEWED WITH PATIENT 02/02/19 1132 JS. HOSPITALIZATION/MAJOR DIAGNOSTIC PROCEDURE [facility]IL[facility] MENTAL HE[facility] X 4 REVIEW OF SYSTEMS REVIEWED BY: PROVIDER: IVAN CARROLL . CONSTITUTIONAL: ANY CHANGE IN YOUR MEDICAL CONDITION? RECENTLY DIAGNOSED WITH HTN-NEW MED . CHILLS NO . FEVER NO . INFECTION: DO YOU HAVE NEW INFECTIONS? NO . DO YOU HAVE HISTORY OF MRSA? NO . MUSCULOSKELETAL: ANY NEW PATTERNS OF PAIN OR NUMBNESS? NO . GASTROENTEROLOGY: ANY NEW CHANGE IN BOWEL CONTROL? YES . GENITOURINARY: ANY NEW CHANGE IN BLADDER CONTROL? YES . IS THERE A CHANCE YOU COULD BE ? NO . HEMATOLOGY/LYMPH: DO YOU TAKE ANY BLOOD THINNERS? (FOR EXAMPLE- COUMADIN, PLAVIX, AGGRENOX, PLATEL, PRADAXA, OR XARELTO) NO . WHEN WAS YOUR LAST DOSE? DATE: TIME: . NEUROLOGY: HAVE YOU FALLEN IN THE PAST 12 MONTHS? NO . ANY NEW EXTREMITY NUMBNESS OR WEAKNESS? NO . CARDIOLOGY: DO YOU HAVE A PACEMAKER OR DEFIBRILLATOR? NO . RESPIRATORY: HAVE YOU BEEN SICK IN THE PAST WEEK? NO . FEVER NO . FLU LIKE SYMPTOMS? NO . COUGH NO . INTEGUMENTARY: DO YOU HAVE ANY RASHES OR OPEN SORES? NO . ALLERGIC/IMMUNO: ARE YOU ALLERGIC TO IV DYE? NO . ANY NEW ALLERGIES? NO . PSYCHIATRIC: DO YOU HAVE THOUGHTS OF HURTING YOURSELF OR SOMEONE ELSE? NO . ARE YOU ABUSED, NEGLECTED, OR IN AN UNSAFE ENVIRONMENT? NO . ENDOCRINOLOGY: ARE YOU DIABETIC? NO . OTHER: DO YOU NEED ANY PRESCRIPTIONS? YES OXYCODONE AND FLEXERIL . IF YES, PLEASE LIST: ____ . ANY NEW PROBLEMS WITH YOUR MEDICATIONS? NO . WHEN DID YOU LAST EAT? ____ . WHEN DID YOU LAST DRINK? ____ . WHAT DID YOU LAST DRINK? ____ . NAME OF PERSON DRIVING YOU HOME? ____ . DO YOU HAVE ANY OTHER QUESTIONS OR CONCERNS NO . VITAL SIGNS WT 441.2 LBS, HT 65 IN, BMI 73.41 INDEX, BP 158/90 MM HG, HR 99 /MIN, RR 18 /MIN, TEMP 97.4 F, OXYGEN SAT % 97%, NA INITIALS SC 10:45. EXAMINATION GENERAL EXAMINATION: GENERALAWAKE,ALERT ,PLEAASANT . PSYCHAFFECT NORMAL . LUNGS:LUNG MONTES ARE CLEAR TO AUSCULTATION BILATERALLY. GOOD MOVEMENT OF AIR . HEART:S1, S2 IN A REGULAR RATE AND RHYTHM. NO SIGNIFICANT MURMURS, RUBS OR GALLOPS NOTED . ASSESSMENTS INTERVERTEBRAL DISC DISORDER WITH RADICULOPATHY OF LUMBAR REGION - M51.16 (PRIMARY) TREATMENT INTERVERTEBRAL DISC DISORDER WITH RADICULOPATHY OF LUMBAR REGION REFILL OXYCODONE-ACETAMINOPHEN TABLET, 5-325 MG, 1 TABLET NEEDED, ORALLY, EVERY 6 HRS PRN PIAN MDD=4 FOR SEVERE PAIN MDD=4, 30 DAY(S), 120, REFILLS 0 REFILL CYCLOBENZAPRINE HCL TABLET, 10 MG, 1 CAP, ORALLY, THREE TIMES A DAY, 30 DAY(S), 90 CAPSULE, REFILLS 5 NOTES: ISTOP REGISTRY REVIEWED AND DEMONSTRATES COMPLLIANCE. BRINGS IN MEDICATIONS WHICH IS APPROPRIATE FOR WHAT WAS DISPENSED. RECENT URINE TOXICOLOGY REVIEWED. NO UNAUTHORIZED MEDICATIONS. NO ILLICIT SUBSTANCES AND PRESCRIBED MEDICATIONS WERE PRESENT. , RISKS AND BENEFITS OF NARCOTIC/OPIOD MEDICATIONS WERE REVIEWED WITH PATIENT - THIS INCLUDES BUT IS NOT LIMITED TO RISK OF DEPENDANCE/DEVELOPMENT OF ADDICTION, MOOD DISTURBANCE AND DEPRESSION, OSTEOPOROSIS, HORMONAL AND LABIDAL CHANGES, RESPIRATORY DEPRESSION AND . PATIENT IS ADVISED NOT TO DRIVE OR DRINK ALCOHOL WHILE ON THESE MEDICATIONS. REFERRAL TO:[facility] [place] [facility] REASON:CHRONIC LBP/KNEE PAIN PROCEDURE CODES FA211 ESTABILISHED PATIENT [facility] FAC[facility] CHARGE DISPOSITION & COMMUNICATION FOLLOW UP NO F/U (REASON: REFER TO TERRAL PALLIATIVE CARE) ELECTRONICALLY SIGNED BY CARLY FLORENTINO ON 08/18/2019 AT 01:06 PM EDT DISCLAIMER : THIS IS A VISIT SUMMARY EXTRACTED FROM THE [employer] CHART. IT IS NOT A COPY OF THE [employer] PROGRESS NOTE. [place]
== END ==
LOC: M PAIN 10:00
PROVIDERS: ATTEND Nurse Practitioner Family
DX: M51.16 Intervertebral disc disorders with radiculopathy, lumbar region (principal); G89.29 Other chronic pain; Z86.59 Personal history of other mental and behavioral disorders; G47.00 Insomnia, unspecified; J45.909 Unspecified asthma, uncomplicated; I10 Essential (primary) hypertension; F17.210 Nicotine dependence, cigarettes, uncomplicated; Z88.5 Allergy status to narcotic agent; E66.01 Morbid (severe) obesity due to excess calories; Z68.45 Body mass index [BMI] 70 or greater, adult; Z79.899 Other long term (current) drug therapy